=== PATIENT | male | born 1960 | race Caucasian/White ===

== ENCOUNTER 2024-04-13 00:53 | Emergency (ER) | payer MEDICARE ==
[2024-04-13 01:04] LABS: APPEARANCE,URINE CLOUDY (CLEAR); BILIRUBIN,URINE MODERATE (NEGATIVE); COLOR,URINE BROWN (YELLOW); GLUCOSE,URINE 250 mg/dL (NEGATIVE); KETONES,URINE 15 mg/dL (NEGATIVE); LEUKOCYTE ESTERASE,URINE LARGE (NEGATIVE); NITRITE,URINE POSITIVE (NEGATIVE); OCCULT BLOOD,URINE LARGE (NEGATIVE); PH,URINE 5.5 (4.5-8.0); PROTEIN,URINE >=300 mg/dL (NEGATIVE)
[2024-04-13 01:13] LABS: BACTERIA,URINE MODERATE /HPF (NOT SEEN); EPITHELIAL CELLS,URINE NOT SEEN /HPF (NOT SEEN); MUCUS,URINE FEW /HPF (NOT SEEN); RBC,URINE 40-50 /HPF (0-5); WBC,URINE 30-40 /HPF (0-5)
[2024-04-13 01:23] VITALS: BP 154/83; PULSE 87
[2024-04-13] MEDS: cefTRIAXone 1 GM Vial IVPUSH ONE (01:37)
== END 2024-04-13 02:00 | disposition home or self-care (01) ==
LOC: CC.ED 00:53
DX: N39.0 Urinary tract infection, site not specified (principal); I10 Essential (primary) hypertension; E11.9 Type 2 diabetes mellitus without complications; E66.9 Obesity, unspecified; Z72.0 Tobacco use; Z79.899 Other long term (current) drug therapy; Z68.37 Body mass index [BMI] 37.0-37.9, adult
CPT/HCPCS: 81001; 87086; 87088; 87186; 96374; 99283; J0696

== ENCOUNTER 2024-07-31 16:32 | Emergency (ER) | payer MEDICARE ==
[2024-07-31 18:06] VITALS: BP 135/77; PULSE 82
== END 2024-07-31 17:48 | disposition home or self-care (01) ==
LOC: CC.ED 16:32
DX: N99.89 Other postprocedural complications and disorders of genitourinary system (principal); R33.9 Retention of urine, unspecified; I10 Essential (primary) hypertension; E11.9 Type 2 diabetes mellitus without complications; E66.9 Obesity, unspecified; M19.90 Unspecified osteoarthritis, unspecified site; Z91.030 Bee allergy status; Z79.899 Other long term (current) drug therapy; Z68.36 Body mass index [BMI] 36.0-36.9, adult
CPT/HCPCS: 51700; 99284